=== PATIENT | male | born 1965 | race African-American/Black ===

== ENCOUNTER 2017-01-14 13:39 | Emergency (ER) | payer OTHER ==
[~2017-01-14] VITALS: Ht 185.4 cm; Wt 75.0 kg
[~2017-01-14 13:39] MED LIST: AZIT250T43 PO
[2017-01-14 13:41] VITALS: BP 113/64; PULSE 107; RESP 15; TEMP 97.5; O2SAT 99
--- NOTE | 2017-01-14 15:53 | PD ---
HPI Chief Complaint: Skin Problem Time Seen by Provider: 15:41 Travel History International Travel<30 days: No Contact w/Intl Traveler<30days: No Traveled to known affect area: No History of Present Illness HPI 51-year-old male presents to the emergency room with a two-week history of worsening right thumb pain. States he has been trying to use Benadryl assuming it was allergy-related and has not had any relief. He was concerned about a bubble that showed up near the nail that is becoming more painful. Denies trauma , fever, chills. Denies chronic medical conditions. 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 He has never had this issue. [facility] Past Medical History Asthma: Yes Diminished Hearing: No Social History Alcohol Use: Yes Tobacco Use: Yes Substance Use: Yes (MARIJUANA) Allergies-Medications (Allergen,Severity, Reaction): Coded Allergies: No Known Allergies (Verified , 03/07/15) Reported Meds & Prescriptions Reported Meds & Active Scripts Active Bactrim DS (Sulfamethoxazole-Trimethoprim) 800-160 Mg Tab 1 Tab PO BID Azithromycin 250 Mg Tab 250 Mg PO DAILY 4 Days Review of Systems Except as stated in HPI: all other systems reviewed are Neg Physical Exam Narrative GENERAL: Well-nourished, well-developed patient. SKIN: Focused skin assessment warm/dry. HEAD: Normocephalic. EYES: No scleral icterus. No injection or drainage. NECK: Supple, trachea midline. CARDIOVASCULAR: Regular rate and rhythm without murmurs, gallops, or rubs. RESPIRATORY: Breath sounds equal bilaterally. No accessory muscle use. MUSCULOSKELETAL: No cyanosis, or edema. Right thumb- TTP from thumb base to distal thumb. Large, 1cm area of pustular area surrounding the cuticle without expression, no significant edema proximal to the area of fluctuance. No lymphangiopathic spread. Neurovasc intact. BACK: Nontender without obvious deformity. No CVA tenderness. Data Data Last Documented VS Vital Signs Date Time Temp Pulse Resp B/P (MAP) Pulse Ox O2 Delivery O2 Flow Rate FiO2 01/14/17 18:27 01/14/17 13:41 97.5 107 15 99 Orders Orders Acetamin-Hydrocod 325-5 Mg ([place] 5-325 (01/14/17 16:00) Ed Discharge Order (01/14/17 16:59) [facility] Medical Decision Making Medical Screen Exam Complete: Yes Emergency Medical Condition: Yes Differential Diagnosis Paronychia versus cellulitis versus felon Narrative Course 51-year-old male presents to the emergency room with a two-week history of worsening right thumb pain. States he has been trying to use Benadryl assuming it was allergy-related and has not had any relief. He was concerned about a bubble that showed up near the nail that is becoming more painful. Denies trauma , fever, chills. Denies chronic medical conditions. 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 He has never had this issue. Vital Signs Stable Physical exam c/w paronychia. no evidence of deep tissue involvement. I&D performed, pt tolerated well. Educated pt on wound care. Advised to remain out of water for at least 3 days. Advised that the lesion will continue to heal. Bactrim DS for abscess and OTC Ibuprofen for pain. Return to PCP for follow up within 3 days. Return to ED for worsening symptoms. Procedures Procedure Narrative INCISION AND DRAINAGE OF ABSCESS: The area was prepped and was sterilely draped. A digital block was performed with 1% lidocaine without epinephrine on either side of the right thumb. A number 11 scalpel was used to make a 1 -cm incision across the area of the abscess, parallel to the base of the nail. The abscess was drained and irrigated with normal saline. Advised on wound care, advised follow-up with primary care physician for further treatment Diagnosis Primary Impression: Paronychia of thumb, right Referrals: Primary Care Physician Additional Instructions: Take all medications as prescribed Change your dressings at least once daily. Avoid soaking the area for at least 24 hours. If your symptoms persist or worsen return to the emergency department Scripts Sulfamethoxazole-Trimethoprim (Bactrim DS) 800-160 Mg Tab 1 TAB PO BID for Infection, #20 TAB 0 Refills Prov: Amelia Monroy MD 01/14/17 Disposition: 01 DISCHARGE HOME Condition: Stable Brynn Valdes Jan 14, 2017 15:53
[2017-01-14] MEDS ORDERED: ACETAMINOPHEN/HYDROcodone 325 MG/5 MG TAB PO ONE (16:00)
[2017-01-14] MEDS ORDERED: BACT800T5 PO (16:58)
== END 2017-01-14 18:28 | disposition home or self-care (01) ==
LOC: NEPK 13:39
DX: L03.011 Cellulitis of right finger (principal)
CPT/HCPCS: 10060